=== PATIENT | male | born 1930 | race Caucasian/White ===

== ENCOUNTER 2021-07-26 20:47 | Emergency (ER) | payer OTHER ==
[2021-07-26 21:11] LABS: HEMOGLOBIN 16.6 gm/dl (14.0-17.5); RED BLOOD COUNT 4.85 M/UL (4.20-5.50); WHITE BLOOD COUNT 4.9 K/UL (4.5-11.0)
[2021-07-26 21:42] LABS: BUN/CREATININE RATIO 24 (0-10)
== END 2021-07-27 00:34 | disposition home or self-care (01) ==
LOC: ER1 20:47
PROVIDERS: Family Medicine
DX: I71.4 Abdominal aortic aneurysm, without rupture (principal); K80.80 Other cholelithiasis without obstruction; I25.2 Old myocardial infarction; E78.5 Hyperlipidemia, unspecified; I10 Essential (primary) hypertension; Z87.891 Personal history of nicotine dependence; Z20.822 Contact with and (suspected) exposure to COVID-19
CPT/HCPCS: 80053; 81001; 83690; 85025; 93005; 96374; 96375; 99284; Q9967; U0002